=== PATIENT | male | born 1960 | race Caucasian/White ===

== ENCOUNTER 2016-11-02 15:06 | Outpatient (CLI) | payer OTHER | END 2016-11-02 15:07 | disposition home or self-care (01) | DX: Z00.00 Encounter for general adult medical examination without abnormal findings (principal); I10 Essential (primary) hypertension; N28.9 Disorder of kidney and ureter, unspecified; E78.5 Hyperlipidemia, unspecified; Z12.5 Encounter for screening for malignant neoplasm of prostate ==

== ENCOUNTER 2018-01-12 08:00 | Outpatient (CLI) | payer OTHER ==
[2018-01-12 19:32] LABS: BILIRUBIN,URINE NEGATIVE (NEGATIVE); GLUCOSE, URINE (UA) NEGATIVE (NEGATIVE); KETONES,URINE (UA) NEGATIVE (NEGATIVE); LEUKOCYTE ESTERASE, URINE NEGATIVE (NEGATIVE); NITRITE,URINE NEGATIVE (NEGATIVE); OCCULT BLOOD,URINE NEGATIVE (NEGATIVE); PROTEIN,URINE NEGATIVE (NEGATIVE); UROBILINOGEN,URINE 0.2 (NORMAL) E.U./dL (NORMAL)
[2018-01-12 19:53] LABS: ALBUMIN 4.1 g/dL (3.2-5.5); ALBUMIN/GLOBULIN RATIO 1.3 (1.0-2.2); ALKALINE PHOSPHATASE 69 IU/L (42-121); ALT ALANINE AMINOTRANSFERASE 28 IU/L (10-60); AST ASPARTATE AMINOTRANSFERASE 27 IU/L (10-42); BILIRUBIN,TOTAL 0.7 mg/dL (0.2-1.0); BUN - BLOOD UREA NITROGEN 15 mg/dL (6-20); CARBON DIOXIDE - CO2 26 mmol/L (21-32); CHLORIDE 104 mmol/L (101-111); CHOL/HDL RATIO 4.8 (<5.0); CHOLESTEROL 208 mg/dL; CREATININE 0.8 mg/dL (0.6-1.2); GFR - MDRD 99 (>89); GLUCOSE 87 mg/dL (70-100); HDL CHOLESTEROL 43 mg/dL; LDL CHOLESTEROL,CALCULATED 137 mg/dL; LDL/HDL RATIO 3.2 (<3.6); SODIUM 135 mmol/L (135-145); TOTAL PROTEIN 7.2 g/dL (6.7-8.2); VLDL CHOLESTEROL 28 mg/dL
[2018-01-12 20:11] LABS: BACTERIA,URINE None Seen /HPF (None Seen); CLARITY,URINE CLEAR (CLEAR); MUCUS,URINE Few Strands; RBC,URINE None Seen /HPF (0-5); SQUAMOUS EPITHELIAL CELL,UR NONE SEEN (<= Few)
== END 2018-01-12 08:01 | disposition home or self-care (01) ==
LOC: LAB.WCP 08:00
PROVIDERS: ATTEND Family Medicine
DX: Z00.00 Encounter for general adult medical examination without abnormal findings (principal); I10 Essential (primary) hypertension; N28.9 Disorder of kidney and ureter, unspecified; E78.5 Hyperlipidemia, unspecified; Z12.5 Encounter for screening for malignant neoplasm of prostate
CPT/HCPCS: 36415; 80053; 80061; 81001; 83721; 84153; 84443; 87086

== ENCOUNTER 2018-10-03 08:00 | Outpatient (CLI) | payer OTHER ==
[2018-10-03 13:24] LABS: ALBUMIN 4.6 g/dL (3.2-5.5); ALBUMIN/GLOBULIN RATIO 1.6 (1.0-2.2); ALKALINE PHOSPHATASE 69 IU/L (42-121); ALT ALANINE AMINOTRANSFERASE 29 IU/L (10-60); AST ASPARTATE AMINOTRANSFERASE 26 IU/L (10-42); BILIRUBIN,TOTAL 0.9 mg/dL (0.2-1.0); BUN - BLOOD UREA NITROGEN 16 mg/dL (6-20); CHOL/HDL RATIO 5.2 (<5.0); CHOLESTEROL 224 mg/dL; GFR - MDRD 76 (>89); GLUCOSE 100 mg/dL (70-100); HDL CHOLESTEROL 43 mg/dL; LDL CHOLESTEROL,CALCULATED 148 mg/dL; LDL/HDL RATIO 3.4 (<3.6); TOTAL PROTEIN 7.5 g/dL (6.7-8.2); VLDL CHOLESTEROL 33 mg/dL
[2018-10-03 13:28] LABS: BASOPHILS % (AUTO) 0.5 %; EOSINOPHILS % (AUTO) 0.8 %; HGB - HEMOGLOBIN 16.4 g/dL (14.0-18.0); LYMPHOCYTES # (AUTO) 1.3 10^3/uL (1.5-3.5); LYMPHOCYTES % (AUTO) 31.2 %; MEAN CORPUSCULAR HEMOGLOBIN 31.9 pg (27.0-31.0); MEAN CORPUSCULAR HGB CONC 34.6 g/dL (32.0-36.0); MEAN CORPUSCULAR VOLUME 92.3 fL (80.0-94.0); MEAN PLATELET VOLUME 8.6 fL (7.4-11.4); MONOCYTES # (AUTO) 0.2 10^3/uL (0.0-1.0); MONOCYTES % (AUTO) 5.6 %; NEUTROPHILS # (AUTO) 2.6 10^3/uL (1.5-6.6); NEUTROPHILS % (AUTO) 61.9 %; PLT - PLATELET COUNT 192 10^3/uL (130-450); RED BLOOD COUNT 5.13 10^6/uL (4.70-6.10); RED CELL DISTRIBUTION WIDTH 12.9 % (12.0-15.0); WHITE BLOOD COUNT 4.2 x10^3/uL (4.8-10.8)
[2018-10-03 13:30] LABS: CARBON DIOXIDE - CO2 28 mmol/L (21-32); CHLORIDE 102 mmol/L (101-111); SODIUM 137 mmol/L (135-145)
== END 2018-10-03 23:59 | disposition home or self-care (01) ==
LOC: LAB.WCP 08:00
PROVIDERS: ATTEND Family Medicine
DX: Z00.00 Encounter for general adult medical examination without abnormal findings (principal)
CPT/HCPCS: 36415; 80053; 80061; 83721; 84153; 84443; 85025

== ENCOUNTER 2018-11-15 06:03 | Emergency (ER) | payer OTHER ==
--- NOTE | 2018-11-15 06:16 | ED Physician Documentation ---
PD HPI ABD PAIN - Stated complaint Stated Complaint: SIDE PX/UNABLE TO URINATE - Chief complaint Chief Complaint: Back Pain - History obtained from History obtained from: Patient - History of Present Illness Timing - onset: Enter time (03:00), Today Timing - details: Abrupt onset, Intermittant, Waxing and waning Pain level max: 8 Pain level now: 1 Quality: Pain Location: LLQ Radiation: Left flank Improved by: Other (no ameliorating factors) Worsened by: Other (no exacerbating factors) Associated symptoms: Nausea (mild). No: Fever, Vomiting, Diarrhea, Constipation Similar symptoms before: Diagnosis (similar to renal colic 10 years ago) Recently seen: Not recently seen - Additional information Additional information: c/o left flank pain since 3 AM inadequately relieved with 800mg PO ibuprofen. He had similar but milder pain 9 days ago that lasted several hours but then resolved until this morning. He feels this pain is very similar to renal colic he had 10 years ago. Review of Systems Constitutional: denies: Fever Cardiac: reports: Reviewed and negative Respiratory: reports: Reviewed and negative GI: reports: Abdominal Pain, Nausea. denies: Abdominal Swelling, Vomiting, Constipation, Diarrhea : denies: Dysuria, Frequency PD PAST MEDICAL HISTORY - Past Medical History Past Medical History: Yes : Kidney stones - Past Surgical History Past Surgical History: No - Present Medications Home Medications: Ambulatory Orders Medication Instructions Recorded Confirmed Oxycodone HCl/Acetaminophen 1 - 2 each PO Q6H PRN #20 tablet 11/15/18 [Percocet 5-325 mg Tablet] Tamsulosin [Flomax] 0.4 mg PO DAILY #10 capsule 11/15/18 - Allergies Allergies/Adverse Reactions: Allergies Allergy/AdvReac Type Severity Reaction Status Date / Time No Known Drug Allergies Allergy Verified 11/15/18 06:07 - Living Situation Living Situation: reports: With spouse/s.o. Living Arrangement: reports: At home PD ED PE NORMAL - Vitals Vital signs reviewed: Yes - General General: Alert and oriented X 3, No acute distress, Well developed/nourished - Cardiac Cardiac: RRR, No murmur - Respiratory Respiratory: No respiratory distress, Clear bilaterally - Abdomen Abdomen: Soft, Non tender - Back Back: No CVA TTP Results - Vitals Vitals: Vital Signs - 24 hr 11/15/18 11/15/18 06:07 07:42 Temperature 36.6 C Heart Rate 56 L 61 Respiratory 20 18 Rate Blood Pressure 161/89 H 142/84 H O2 Saturation 99 100 Oxygen O2 Source Room air - Rads (name of study) CT A/P Radiology: Prelim report reviewed, See rad report PD MEDICAL DECISION MAKING - ED course Complexity details: reviewed results, re-evaluated patient, considered differential, d/w patient ED course: We discussed pain medication on initial H+P and settled on IM morphine. However, when RN went to give this, he declined because his pain resolved. Departure - Departure Disposition: 01 Home, Self Care Clinical Impression: Renal colic on left side Condition: Good Instructions: ED Stone Renal W Colic Follow-Up: Alfred Burnett MD [Primary Care Provider] - Prescriptions: Oxycodone HCl/Acetaminophen [Percocet 5-325 mg Tablet] 1 - 2 each PO Q6H PRN #20 tablet PRN Reason: pain Tamsulosin [Flomax] 0.4 mg PO DAILY #10 capsule Discharge Date/Time: 11/15/18 07:42
[2018-11-15] MEDS ORDERED: MORPHINE 2 MG/ML SYRINGE IM STA (06:27)
[2018-11-15] MEDS ORDERED: TAMSULOSIN 0.4 MG CAPSULE PO STA (06:46)
--- NOTE | 2018-11-15 07:27 | CT Report ---
Reason: left flank pain Procedure Date: 11/15/2018 Accession Number: [id number] / [id number] Procedure: CT - Abdomen/Pelvis WO CPT Code: FULL RESULT: EXAM: CT ABDOMEN AND PELVIS EXAM DATE: 11/15/2018 06:48 AM. CLINICAL HISTORY: Left flank pain. COMPARISONS: None. TECHNIQUE: Routine helical CT imaging was performed through the abdomen and pelvis. IV contrast: . Enteric contrast: No. Reconstructions: Coronal and sagittal. In accordance with CT protocol optimization, one or more of the following dose reduction techniques were utilized for this exam: automated exposure control, adjustment of mA and/or KV based on patient size, or use of iterative reconstructive technique. FINDINGS: Lung Bases: Unremarkable.. Calcified hilar lymph nodes Liver: Calcified granulomas. No masses. Gallbladder/Bile Ducts: Unremarkable. Spleen: Calcified granulomas Pancreas: Normal. Adrenal Glands: Normal. Kidneys: Right kidney subcentimeter densities too small to characterize. No calcifications. No hydronephrosis. Left kidney moderate left hydroureteronephrosis down to a 4 mm calcification in the mid left ureter at L5 level Peritoneal Cavity/Bowel: Diverticulosis No free fluid, free air or adenopathy. No masses or acute inflammatory process. Pelvic Organs: Enlarged prostate with calcifications The bladder and visualized pelvic organs are otherwise within normal limits. Vasculature: No aneurysms or other significant abnormality. Bones: Central compressions at L4-L5. Other: None. IMPRESSION: 1. Left kidney moderate left hydroureteronephrosis down to a 4 mm calcification in the mid left ureter at L5 level 2. Diverticulosis RADIA
[2018-11-15 07:43] VITALS: BP 142/84
== END 2018-11-15 07:42 | disposition home or self-care (01) ==
LOC: ED 06:03
DX: N13.2 Hydronephrosis with renal and ureteral calculous obstruction (principal)
CPT/HCPCS: 74176; 99283; A9270; J2270

== ENCOUNTER 2019-01-13 11:56 | Emergency (ER) | payer OTHER ==
[2019-01-13 12:28] LABS: BILIRUBIN,URINE NEGATIVE (NEGATIVE); GLUCOSE, URINE (UA) NEGATIVE (NEGATIVE); KETONES,URINE (UA) NEGATIVE (NEGATIVE); LEUKOCYTE ESTERASE, URINE NEGATIVE (NEGATIVE); NITRITE,URINE NEGATIVE (NEGATIVE); OCCULT BLOOD,URINE LARGE (NEGATIVE); PROTEIN,URINE NEGATIVE (NEGATIVE); UROBILINOGEN,URINE 0.2 (NORMAL) E.U./dL (NORMAL)
[2019-01-13 12:30] LABS: CLARITY,URINE CLEAR (CLEAR)
[2019-01-13 12:37] LABS: BACTERIA,URINE Few /HPF (None Seen); RBC,URINE TNTC /HPF (0-5); SQUAMOUS EPITHELIAL CELL,UR RARE Squamous (<= Few)
[2019-01-13 12:46] LABS: BASOPHILS # (AUTO) 0.1 10^3/uL (0.0-0.1); EOSINOPHILS % (AUTO) 0.2 %; HGB - HEMOGLOBIN 15.6 g/dL (14.0-18.0); LYMPHOCYTES # (AUTO) 1.1 10^3/uL (1.5-3.5); LYMPHOCYTES % (AUTO) 9.5 %; MEAN CORPUSCULAR HEMOGLOBIN 31.2 pg (27.0-31.0); MEAN CORPUSCULAR VOLUME 91.7 fL (80.0-94.0); MEAN PLATELET VOLUME 7.8 fL (7.4-11.4); MONOCYTES # (AUTO) 0.5 10^3/uL (0.0-1.0); MONOCYTES % (AUTO) 4.1 %; NEUTROPHILS # (AUTO) 9.7 10^3/uL (1.5-6.6); NEUTROPHILS % (AUTO) 85.2 %; PLT - PLATELET COUNT 183 10^3/uL (130-450); RED BLOOD COUNT 5.01 10^6/uL (4.70-6.10); RED CELL DISTRIBUTION WIDTH 12.8 % (12.0-15.0); WHITE BLOOD COUNT 11.4 x10^3/uL (4.8-10.8)
[2019-01-13 13:01] LABS: ALBUMIN 4.4 g/dL (3.2-5.5); ALBUMIN/GLOBULIN RATIO 1.8 (1.0-2.2); BILIRUBIN,TOTAL 0.6 mg/dL (0.2-1.0); CALCIUM 9.2 mg/dL (8.5-10.3); CREATININE 1.2 mg/dL (0.6-1.2); TOTAL PROTEIN 6.9 g/dL (6.7-8.2)
--- NOTE | 2019-01-13 14:19 | ED Physician Documentation ---
PD HPI ABD PAIN - Stated complaint Stated Complaint: ABD PX - Chief complaint Chief Complaint: Abd Pain - History obtained from History obtained from: Patient - History of Present Illness Timing - onset: Today Timing - details: Now resolved Quality: Pain Location: LLQ Radiation: Left flank Associated symptoms: Nausea. No: Vomiting Similar symptoms before: Diagnosis (Diagnosed with 4 mm left mid-ureteral stone two months ago.) - Additional information Additional information: The patient is a 58-year-old male who presents with left lower quadrant abdominal pain that started this morning and lasted for about 3 hours before resolving spontaneously. He had associated nausea, without vomiting. He denies fever or dysuria. He was seen here 2 months ago and was diagnosed with a 4 mm left mid ureteral stone. He did not seek outpatient follow-up since that diagnosis. He had milder left lower quadrant pain 5 days ago for a short time. It became much worse during the episode this morning. Review of Systems Constitutional: denies: Fever Cardiac: denies: Chest pain / pressure Respiratory: denies: Dyspnea, Cough GI: reports: Abdominal Pain, Nausea. denies: Vomiting, Diarrhea : denies: Dysuria Skin: denies: Rash Musculoskeletal: reports: Back pain (left flank) Neurologic: denies: Headache PD PAST MEDICAL HISTORY - Past Medical History Past Medical History: Yes : Kidney stones - Past Surgical History Past Surgical History: No - Present Medications Home Medications: Ambulatory Orders Medication Instructions Recorded Confirmed Oxycodone HCl/Acetaminophen 1 - 2 each PO Q6H PRN #20 tablet 11/15/18 [Percocet 5-325 mg Tablet] Tamsulosin [Flomax] 0.4 mg PO DAILY #10 capsule 11/15/18 - Allergies Allergies/Adverse Reactions: Allergies Allergy/AdvReac Type Severity Reaction Status Date / Time No Known Drug Allergies Allergy Verified 11/15/18 06:07 - Social History Does the pt smoke?: No Smoking Status: Never smoker Does the pt drink ETOH?: Yes Does the pt have substance abuse?: No PD ED PE NORMAL - Vitals Vital signs reviewed: Yes (hypertensive) - General General: Alert and oriented X 3, Well developed/nourished - HEENT HEENT: Atraumatic - Respiratory Respiratory: No respiratory distress - Abdomen Abdomen: Normal bowel sounds, Soft, Non tender, No organomegaly - Back Back: No CVA TTP - Derm Derm: No rash - Neuro Neuro: Alert and oriented X 3, Normal speech Results - Vitals Vitals: Vital Signs - 24 hr 01/13/19 12:08 Temperature 36.7 C Heart Rate 68 Respiratory 16 Rate Blood Pressure 166/100 H O2 Saturation 98 Oxygen O2 Source Room air - Labs Labs: Laboratory Tests 01/13/19 01/13/19 01/13/19 12:15 12:40 12:40 WBC 11.4 H RBC 5.01 Hgb 15.6 Hct 45.9 MCV 91.7 MCH 31.2 H MCHC 34.0 RDW 12.8 Plt Count 183 MPV 7.8 Neut # (Auto) 9.7 H Lymph # (Auto) 1.1 L Nash # (Auto) 0.5 Eos # (Auto) 0.0 Baso # (Auto) 0.1 Absolute Nucleated RBC 0.00 Nucleated RBC % 0.0 Sodium 135 Potassium 4.2 Chloride 101 Carbon Dioxide 24 Anion Gap 10.0 BUN 21 H Creatinine 1.2 Estimated GFR (MDRD) 62 L Glucose 98 Calcium 9.2 Total Bilirubin 0.6 AST 22 ALT 20 Alkaline Phosphatase 68 Total Protein 6.9 Albumin 4.4 Globulin 2.5 Albumin/Globulin Ratio 1.8 Lipase 65 H Urine Color YELLOW Urine Clarity CLEAR Urine pH 6.0 Ur Specific [place] <=1.005 Urine Protein NEGATIVE Urine Glucose (UA) NEGATIVE Urine Ketones NEGATIVE Urine Occult Blood LARGE H Urine Nitrite NEGATIVE Urine Bilirubin NEGATIVE Urine Urobilinogen 0.2 (NORMAL) Ur Leukocyte Esterase NEGATIVE Urine RBC TNTC H Urine WBC 0-3 Ur Squamous Epith Cells RARE Squamous Urine Bacteria Few Ur Microscopic Review INDICATED Urine Culture Comments NOT INDICATED - Rads (name of study) 1-view abd Radiology: Prelim report reviewed, EMP read contemporaneously, See rad report (Normal 1 view abdominal x-ray. No radiopaque calculus seen in the field.) PD MEDICAL DECISION MAKING - ED course Complexity details: reviewed old records, reviewed results, re-evaluated patient, considered differential, d/w patient, d/w family ED course: The patient's presentation is most consistent with left ureteral colic. A 1 view abdominal x-ray does not reveal evidence of a calculus, but it is possible that the patient passed a stone prior to obtaining the x-ray. Urinalysis is positive for hematuria, without pyuria. The patient is asymptomatic and I suspect he has passed the stone. There is no evidence of pyelonephritis, and I doubt testicular torsion. 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 Departure - Departure Disposition: Home, Self Care Clinical Impression: Renal colic on left side Condition: Stable Instructions: ED Stone Renal W Colic Follow-Up: Alfred Burnett MD [Primary Care Provider] - Comments: Return to the emergency department if you develop recurrent or increasing abdominal pain, persistent vomiting, fever, or otherwise worsening symptoms.
--- NOTE | 2019-01-13 15:05 | XRAY Report ---
Reason: location of left ureteral stone Procedure Date: 01/13/2019 Accession Number: [id number] / [id number] Procedure: XR - Abdomen 1 View X-Ray CPT Code: 91540 FULL RESULT: EXAM: ABDOMEN RADIOGRAPHY EXAM DATE: 01/13/2019 02:34 PM. CLINICAL HISTORY: Location of left ureteral stone. COMPARISON: None. TECHNIQUE: 1 view. FINDINGS: Bowel Gas Pattern: Within normal limits. No dilated loops. Other: No radiopaque calculus seen in the field. Tiny radiodense phleboliths noted in the region of the bladder, however not convincing for bladder or ureteral calculus. IMPRESSION: Normal 1-view abdomen x-ray. No radiopaque calculus seen in the field. RADIA
[2019-01-13 15:28] VITALS: BP 153/98
== END 2019-01-13 15:31 | disposition home or self-care (01) ==
LOC: ED 11:56
DX: N20.1 Calculus of ureter (principal)
CPT/HCPCS: 36415; 74018; 80053; 81001; 81003; 83690; 85025; 87086; 99283

== ENCOUNTER 2021-03-15 08:00 | Outpatient (CLI) | payer OTHER | END 2021-03-15 23:59 | disposition home or self-care (01) | LOC: LAB.N 08:00 | PROVIDERS: ATTEND Nurse Practitioner | DX: R07.0 Pain in throat (principal); Z20.822 Contact with and (suspected) exposure to COVID-19 | CPT/HCPCS: 87070 ==

== ENCOUNTER 2021-05-28 22:33 | Emergency (ER) | payer OTHER ==
[2021-05-28] MEDS ORDERED: PROPARACAINE 0.5% OPHTH DROPS 15 ML EACHEYE STA (22:59)
--- NOTE | 2021-05-28 23:34 | ED Physician Documentation ---
PD HPI OPHTHO - Stated complaint Stated Complaint: POSS CHEMICALS IN EYES - Chief complaint Chief Complaint: Heent - History obtained from History obtained from: Patient - Additional information Additional information: Pt comes to the ED c/o bilateral tearing and irritation of eyes for the past few hours, after using a household vacuum cleaner repair person on his carpet after the dog had an accident there. Pt states his eyes were fine before. No contact lenses. No visual changes. No recent URI. No contact with anyone sick with pink eye. Sx started within 30 min of exposure. No h/o allergies. Review of Systems Ten Systems: 10 systems reviewed and negative Constitutional: reports: Reviewed and negative Eyes: reports: Irritation Ears: reports: Reviewed and negative Nose: reports: Reviewed and negative Throat: reports: Reviewed and negative Cardiac: reports: Reviewed and negative Respiratory: reports: Reviewed and negative GI: reports: Reviewed and negative : reports: Reviewed and negative Skin: reports: Reviewed and negative Musculoskeletal: reports: Reviewed and negative Neurologic: reports: Reviewed and negative Psychiatric: reports: Reviewed and negative Endocrine: reports: Reviewed and negative Immunocompromised: reports: Reviewed and negative PD PAST MEDICAL HISTORY - Past Medical History Past Medical History: Yes : Kidney stones - Past Surgical History Past Surgical History: No - Present Medications Home Medications: Ambulatory Orders Medication Instructions Recorded Confirmed Oxycodone HCl/Acetaminophen 1 - 2 each PO Q6H PRN #20 tablet 11/15/18 [Percocet 5-325 mg Tablet] Tamsulosin [Flomax] 0.4 mg PO DAILY #10 capsule 11/15/18 Gentamicin 0.3% Ophth Drops 1 drops OPTH BID #5 ml 05/28/21 [Garamycin] Naphazoline HCl/Pheniramine 1 ml EACHEYE TID #15 ml 05/28/21 [Naphcon-A Eye Drops] - Allergies Allergies/Adverse Reactions: Allergies Allergy/AdvReac Type Severity Reaction Status Date / Time No Known Drug Allergies Allergy Verified 05/28/21 22:54 - Social History Does the pt smoke?: No Smoking Status: Never smoker Does the pt drink ETOH?: Yes Does the pt have substance abuse?: No - Immunizations Immunizations are current?: Yes PD ED PE NORMAL - Vitals Vital signs reviewed: Yes - General General: Alert and oriented X 3, No acute distress, Well developed/nourished - HEENT HEENT: Atraumatic, PERRL, EOMI, Moist mucous membranes, Other (Mild bilateral conjunctival injection. Moderate tearing. Neg fluorscein exam.) - Neck Neck: Supple, no meningeal sign - Cardiac Cardiac: RRR, No murmur - Respiratory Respiratory: Clear bilaterally - Abdomen Abdomen: Normal bowel sounds, Soft, Non tender, Non distended - Derm Derm: Warm and dry - Extremities Extremities: No deformity - Neuro Neuro: Alert and oriented X 3 - Psych Psych: Normal mood, Normal affect Results - Vitals Vitals: Vital Signs - 24 hr 05/28/21 05/28/21 22:49 23:30 Temperature 36.8 C Heart Rate 54 L 55 L Respiratory 20 16 Rate Blood Pressure 176/97 H 153/96 H O2 Saturation 96 94 Oxygen O2 Source Room air PD MEDICAL DECISION MAKING - ED course Complexity details: considered differential, d/w patient ED course: I d/w pt that given the circumstances, including chemical exposure, lack of allergies, sick contact or URI, and neg fluorscein, I suspect a noninfectious, chemical conjunctivitis. Eye pH normal bilaterally. Pt is drastically improved with application of proparicaine. We have discussed the usual indications for return. Departure - Departure Disposition: 01 Home, Self Care Clinical Impression: Conjunctivitis, chemical Qualifiers: Laterality: bilateral Qualified Code(s): H10.213 - Acute toxic conjunctivitis, bilateral Condition: Stable Instructions: ED Chemical Conjunctivitis Follow-Up: Celestino Cohen MD [Provider Admit Priv/Credential] - Prescriptions: Gentamicin 0.3% Ophth Drops [Garamycin] 1 drops OPTH BID #5 ml Naphazoline HCl/Pheniramine [Naphcon-A Eye Drops] 1 ml EACHEYE TID #15 ml Comments: Your eyes are most likely irritated from the chemicals you used tonight. If that is the case, your eyes should be doing quite a bit better by morning. However, it is possible that you are having a flareup of allergies or a rare case of bilateral pinkeye. If you are feeling worse in the morning, then you may start either the allergy drops or the antibiotic drops given by prescription, or you may try both. Please follow-up with ophthalmology if you are not doing better in the next several days. Discharge Date/Time: 05/28/21 23:41
[2021-05-28 23:40] VITALS: BP 153/96
== END 2021-05-28 23:41 | disposition home or self-care (01) ==
LOC: ED 22:33
DX: T65.891A Toxic effect of other specified substances, accidental (unintentional), initial encounter (principal); H10.213 Acute toxic conjunctivitis, bilateral; Y92.009 Unspecified place in unspecified non-institutional (private) residence as the place of occurrence of the external cause
CPT/HCPCS: 99282; 99283; J3490

== ENCOUNTER 2021-06-27 08:00 | Outpatient (CLI) | payer OTHER ==
[2021-06-27 12:49] LABS: BASOPHILS % (AUTO) 0.7 %; EOSINOPHILS % (AUTO) 0.9 %; HGB - HEMOGLOBIN 15.8 g/dL (14.0-18.0); LYMPHOCYTES # (AUTO) 1.2 10^3/uL (1.5-3.5); LYMPHOCYTES % (AUTO) 26.5 %; MEAN CORPUSCULAR HEMOGLOBIN 31.1 pg (27.0-31.0); MEAN CORPUSCULAR HGB CONC 33.6 g/dL (32.0-36.0); MEAN CORPUSCULAR VOLUME 92.5 fL (80.0-94.0); MEAN PLATELET VOLUME 10.3 fL (7.4-11.4); MONOCYTES # (AUTO) 0.2 10^3/uL (0.0-1.0); MONOCYTES % (AUTO) 5.3 %; NEUTROPHILS % (AUTO) 66.2 %; PLT - PLATELET COUNT 202 10^3/uL (130-450); RED BLOOD COUNT 5.08 10^6/uL (4.70-6.10); RED CELL DISTRIBUTION WIDTH 12.2 % (12.0-15.0); WHITE BLOOD COUNT 4.5 x10^3/uL (4.8-10.8)
[2021-06-27 13:34] LABS: ALBUMIN 4.1 g/dL (3.2-5.5); ALBUMIN/GLOBULIN RATIO 1.3 (1.0-2.2); ALKALINE PHOSPHATASE 69 IU/L (42-121); ALT ALANINE AMINOTRANSFERASE 17 IU/L (10-60); AST ASPARTATE AMINOTRANSFERASE 18 IU/L (10-42); BILIRUBIN,TOTAL 0.6 mg/dL (0.2-1.0); BUN - BLOOD UREA NITROGEN 18 mg/dL (6-20); CALCIUM 9.3 mg/dL (8.5-10.3); CARBON DIOXIDE - CO2 29 mmol/L (21-32); CHLORIDE 102 mmol/L (101-111); CHOL/HDL RATIO 4.5 (<5.0); CHOLESTEROL 195 mg/dL; CREATININE 1.1 mg/dL (0.6-1.2); GFR - MDRD 68 (>89); GLUCOSE 98 mg/dL (70-100); HDL CHOLESTEROL 43 mg/dL; LDL CHOLESTEROL,CALCULATED 135 mg/dL; LDL/HDL RATIO 3.1 (<3.6); POTASSIUM 4.3 mmol/L (3.5-5.0); SODIUM 140 mmol/L (135-145); TOTAL PROTEIN 7.3 g/dL (6.7-8.2); TRIGLYCERIDES 84 mg/dL; VLDL CHOLESTEROL 17 mg/dL
[2021-06-27 13:41] LABS: THYROID STIMULATING HORMONE 1.53 uIU/mL (0.34-5.60)
== END 2021-06-27 23:59 | disposition home or self-care (01) ==
LOC: LAB.WCP 08:00
PROVIDERS: ATTEND Internal Medicine
DX: Z00.00 Encounter for general adult medical examination without abnormal findings (principal); Z12.5 Encounter for screening for malignant neoplasm of prostate
CPT/HCPCS: 36415; 80053; 80061; 83721; 84153; 84443; 85025

== ENCOUNTER 2021-11-28 12:01 | Day surgery (SDC) | payer OTHER ==
[2021-11-28] MEDS ORDERED: LACTATED RINGERS 1,000 ML IV ONE ×2 (12:18→13:39)
[2021-11-28] MEDS ORDERED: PROPOFOL 500 MG/50 ML 500 MG/50 ML VIAL ONE (12:37)
--- NOTE | 2021-11-28 12:53 | ANESTHESIA ---
Pre-Anesthesia VS, & Labs - Diagnosis screening - Procedure colonoscopy Vital Signs: Temp Pulse Resp BP Pulse Ox 36.7 C 63 16 126/95 H 96 11/28/21 12:19 11/28/21 12:19 11/28/21 12:19 11/28/21 12:19 11/28/21 12:19 Height: 5 ft 9 in Weight (kg): 78.3 kg Body Mass Index: 25.4 BMI Classification: Overweight - NPO >8 hours Home Medications and Allergies Allergies/Adverse Reactions: Allergies Allergy/AdvReac Type Severity Reaction Status Date / Time No Known Drug Allergies Allergy Verified 11/27/21 13:16 Anes History & Medical History - Anesthetic History Anesthesia Complications: reports: No previous complications Family history of Anesthesia Complications: Denies Family history of Malignant Hyperthermia: Denies - Medical History Cardiovascular: reports: None Pulmonary: reports: None Gastrointestinal: reports: None Urinary: reports: Kidney stones Musculoskeletal: reports: None Endocrine/Autoimmune: reports: None Skin: reports: None Smoking Status: Never smoker Exam General: Alert, Oriented x3, Cooperative Dental: WNL Mouth Openin Fingerbreadth Neck Mobility: Normal Mallampati classification: II Thyromental Distance: 4-6 cm Respiratory: Lungs clear Cardiovascular: Regular rate Plan Anesthesia Type: Total IV Consent for Procedure(s) Verified and Reviewed: Yes Code Status: Attempt Resuscitation ASA classification: 2-Mild systemic disease Is this case an emergency?: No
--- NOTE | 2021-11-28 13:02 | HISTORY & PHYSICAL EXAMINATION ---
Chief Complaint - Chief Complaint Chief Complaint: here for colon cancer screening History of Present Illness - History Obtained From Records Reviewed: yes History obtained from: pt Exam Limitations: none - History of Present Illness HPI Comment/Other: here for colon cancer screening. no problems History - Past Medical History Cardiovascular: reports: None Respiratory: reports: None Endocrine/Autoimmune: reports: None GI: reports: None : reports: Kidney stones HEENT: reports: None Psych: reports: None Musculoskeletal: reports: None Derm: reports: None MRSA Hx?: No Meds/Allgy - Allergies Allergies/Adverse Reactions: Allergies Allergy/AdvReac Type Severity Reaction Status Date / Time No Known Drug Allergies Allergy Verified 11/27/21 13:16 Review of Systems - Other Findings Other Findings: 10 pt ros as above otherwise unremarkable Exam - Vital Signs Vital Signs: Vital Signs x48h Temp Pulse Resp BP Pulse Ox 11/28/21 12:19 36.7 C 63 16 126/95 H 96 - Physical Exam General Appearance: positive: No acute distress, Alert Eyes Bilateral: positive: PERRL, EOMI ENT: positive: No signs of dehydration Neck: positive: No JVD Respiratory: positive: No respiratory distress, Breath sounds nml Cardiovascular: positive: Regular rate & rhythm Abdomen: positive: Non-tender, No distention Neurologic/Psychiatric: positive: Oriented x3 Conclusion/Plan - Problem List (1) Colon cancer screening Conclusion/Plan: plan colonoscopy. parq held and consent obtained
--- NOTE | 2021-11-28 13:53 | ANESTHESIA POST OP EVALUATION ---
Anesthesia Post Eval - Post Anesthesia Eval Vitals: Last Vital Signs Temp 36.4 C L 11/28/21 13:39 Pulse 56 L 11/28/21 13:39 Resp 16 11/28/21 13:39 BP 101/60 11/28/21 13:39 Pulse Ox 98 11/28/21 13:39 CV Function Including HR & BP: Stable Pain Control: Satisfactory Nausea & Vomiting: Negative Mental Status: Baseline Respiratory Status: Airway Patent Hydration Status: Satisfactory Anesthesia Complications: None
[2021-11-28 14:08] VITALS: BP 122/83
== END 2021-11-28 12:02 | disposition home or self-care (01) ==
LOC: SDS 12:01
PROVIDERS: ATTEND Surgery
DX: Z12.11 Encounter for screening for malignant neoplasm of colon (principal); K57.30 Diverticulosis of large intestine without perforation or abscess without bleeding; F41.8 Other specified anxiety disorders
CPT/HCPCS: 45378; J7120

== ENCOUNTER 2022-10-26 07:36 | Outpatient (CLI) | payer OTHER ==
[2022-10-26 07:51] LABS: EOSINOPHILS % (AUTO) 0.7 %; HCT - HEMATOCRIT 47.6 % (42.0-52.0); LYMPHOCYTES # (AUTO) 1.2 10^3/uL (1.5-3.5); LYMPHOCYTES % (AUTO) 29.8 %; MEAN CORPUSCULAR HEMOGLOBIN 31.2 pg (27.0-31.0); MEAN CORPUSCULAR HGB CONC 33.6 g/dL (32.0-36.0); MEAN CORPUSCULAR VOLUME 92.8 fL (80.0-94.0); MEAN PLATELET VOLUME 9.6 fL (7.4-11.4); MONOCYTES # (AUTO) 0.3 10^3/uL (0.0-1.0); MONOCYTES % (AUTO) 6.1 %; NEUTROPHILS # (AUTO) 2.6 10^3/uL (1.5-6.6); NEUTROPHILS % (AUTO) 62.2 %; PLT - PLATELET COUNT 167 10^3/uL (130-450); RED BLOOD COUNT 5.13 10^6/uL (4.70-6.10); RED CELL DISTRIBUTION WIDTH 12.1 % (12.0-15.0); WHITE BLOOD COUNT 4.1 x10^3/uL (4.8-10.8)
[2022-10-26 08:08] LABS: ALBUMIN 4.4 g/dL (3.2-5.5); ALBUMIN/GLOBULIN RATIO 1.9 (1.0-2.2); ALKALINE PHOSPHATASE 67 IU/L (42-121); ALT ALANINE AMINOTRANSFERASE 18 IU/L (10-60); AST ASPARTATE AMINOTRANSFERASE 25 IU/L (10-42); BILIRUBIN,TOTAL 0.6 mg/dL (0.2-1.0); BUN - BLOOD UREA NITROGEN 17 mg/dL (6-20); CALCIUM 8.8 mg/dL (8.5-10.3); CARBON DIOXIDE - CO2 27 mmol/L (21-32); CHLORIDE 103 mmol/L (101-111); CHOL/HDL RATIO 3.5 (<5.0); CHOLESTEROL 187 mg/dL; CREATININE 1.1 mg/dL (0.6-1.2); GFR - MDRD 68 (>89); GLUCOSE 96 mg/dL (70-100); HDL CHOLESTEROL 53 mg/dL; LDL CHOLESTEROL,CALCULATED 122 mg/dL; LDL/HDL RATIO 2.3 (<3.6); SODIUM 137 mmol/L (135-145); TOTAL PROTEIN 6.7 g/dL (6.7-8.2); TRIGLYCERIDES 61 mg/dL; VLDL CHOLESTEROL 12 mg/dL
[2022-10-26 08:18] LABS: THYROID STIMULATING HORMONE 2.95 uIU/mL (0.34-5.60)
== END 2022-10-26 07:37 | disposition home or self-care (01) ==
LOC: LAB 07:36
PROVIDERS: ATTEND Internal Medicine
DX: E78.5 Hyperlipidemia, unspecified (principal); Z12.5 Encounter for screening for malignant neoplasm of prostate; Z13.29 Encounter for screening for other suspected endocrine disorder; R03.0 Elevated blood-pressure reading, without diagnosis of hypertension
CPT/HCPCS: 36415; 80053; 80061; 83721; 84153; 84443; 85025

== ENCOUNTER 2023-09-24 07:14 | Outpatient (CLI) | payer OTHER ==
[2023-09-24 07:31] LABS: BASOPHILS # (AUTO) 0.1 10^3/uL (0.0-0.1); BASOPHILS % (AUTO) 1.2 %; EOSINOPHILS # (AUTO) 0.1 10^3/uL (0.0-0.7); EOSINOPHILS % (AUTO) 1.6 %; HCT - HEMATOCRIT 46.7 % (42.0-52.0); HGB - HEMOGLOBIN 15.8 g/dL (14.0-18.0); LYMPHOCYTES # (AUTO) 1.3 10^3/uL (1.5-3.5); LYMPHOCYTES % (AUTO) 30.8 %; MEAN CORPUSCULAR HEMOGLOBIN 31.7 pg (27.0-31.0); MEAN CORPUSCULAR HGB CONC 33.8 g/dL (32.0-36.0); MEAN CORPUSCULAR VOLUME 93.8 fL (80.0-94.0); MEAN PLATELET VOLUME 9.3 fL (7.4-11.4); MONOCYTES # (AUTO) 0.3 10^3/uL (0.0-1.0); MONOCYTES % (AUTO) 5.8 %; NEUTROPHILS # (AUTO) 2.6 10^3/uL (1.5-6.6); NEUTROPHILS % (AUTO) 60.4 %; PLT - PLATELET COUNT 190 10^3/uL (130-450); RED BLOOD COUNT 4.98 10^6/uL (4.70-6.10); RED CELL DISTRIBUTION WIDTH 12.1 % (12.0-15.0); WHITE BLOOD COUNT 4.3 x10^3/uL (4.8-10.8)
[2023-09-24 07:41] LABS: ALBUMIN 4.5 g/dL (3.2-5.5); ALBUMIN/GLOBULIN RATIO 1.8 (1.0-2.2); ALKALINE PHOSPHATASE 71 IU/L (42-121); ALT ALANINE AMINOTRANSFERASE 14 IU/L (10-60); AST ASPARTATE AMINOTRANSFERASE 19 IU/L (10-42); BILIRUBIN,TOTAL 0.9 mg/dL (0.2-1.0); BUN - BLOOD UREA NITROGEN 20 mg/dL (6-20); CALCIUM 9.8 mg/dL (8.5-10.3); CARBON DIOXIDE - CO2 31 mmol/L (21-32); CHLORIDE 105 mmol/L (101-111); CHOL/HDL RATIO 3.2 (<5.0); CHOLESTEROL 186 mg/dL; CREATININE 1.1 mg/dL (0.6-1.3); GFR - MDRD 67 (>89); GLUCOSE 84 mg/dL (74-104); HDL CHOLESTEROL 58 mg/dL; LDL CHOLESTEROL,CALCULATED 114 mg/dL; POTASSIUM 3.7 mmol/L (3.5-4.5); SODIUM 140 mmol/L (135-145); TRIGLYCERIDES 70 mg/dL (48-352); VLDL CHOLESTEROL 14 mg/dL
[2023-09-24 07:56] LABS: THYROID STIMULATING HORMONE 2.37 uIU/mL (0.34-5.60)
== END 2023-09-24 07:15 | disposition home or self-care (01) ==
LOC: LAB 07:14
PROVIDERS: ATTEND Internal Medicine
DX: E78.5 Hyperlipidemia, unspecified (principal); Z12.5 Encounter for screening for malignant neoplasm of prostate; F41.8 Other specified anxiety disorders; K57.30 Diverticulosis of large intestine without perforation or abscess without bleeding
CPT/HCPCS: 36415; 80053; 80061; 83721; 84153; 84443; 85025